=== PATIENT | male | born 1990 | race American Indian/Alaskan Native ===

== ENCOUNTER 2016-12-07 16:13 | Emergency (ER) | payer SELFPAY ==
[2016-12-07 17:04] LABS: Basophils % (Auto) 0.5 % (0.0-1.8); Eosinophils % (Auto) 1.8 % (0.0-4.3); Mean Corpuscular HGB Conc 31 % (32-34); Mean Corpuscular Volume 83 fl (84-94); Platelet Count 222 K/mm3 (140-440); Red Blood Count 5.62 M/mm3 (3.65-5.03); Red Cell Distribution Width 15.4 % (13.2-15.2); White Blood Count 7.1 K/mm3 (4.5-11.0)
[2016-12-07 17:05] LABS: Hematocrit 46.8 % (35.5-45.6); Hemoglobin 14.6 gm/dl (11.8-15.2); Mean Corpuscular Hemoglobin 26 pg (28-32)
[2016-12-07 17:07] LABS: Anion Gap 18 mmol/L; Blood Urea Nitrogen 11 mg/dL (9-20); Calcium 9.4 mg/dL (8.4-10.2); Carbon Dioxide 26 mmol/L (22-30); Chloride 103.3 mmol/L (98-107); Glucose 84 mg/dL (75-100); Potassium 3.9 mmol/L (3.6-5.0); Sodium 143 mmol/L (137-145)
[2016-12-07] MEDS ORDERED: LIDOCAINE VISCOUS 2% PO ONE (21:05)
[2016-12-07] MEDS ORDERED: ALUM-MAG HYDROX-SIMETH 200-200-20MG/5ML PO ONE (21:05)
--- NOTE | 2016-12-07 21:07 | Emergency Department Report ---
HPI - General Chief Complaint: Chest Pain Time Seen by Provider: 12/07/16 20:43 - HPI HPI: This is a 26-year-old -[place] male who presents the emergency department from home with complaint of a one-month history of midsternal left- sided intermittent chest pressure. He denies any shortness of breath, nausea, vomiting, back pain, diaphoresis or fever. He thought it might be gas so he tried some Zantac one time without relief. The patient is a former smoker having quit a few days ago. He denies any drugs or excessive alcohol use. He denies any family history of early cardiac disease or events. No recent travel or sick contacts at home. He does not have a primary care doctor. He denies any known aggravating or alleviating factors. ED Past Medical Hx - Past Medical History Previous Medical History?: No - Surgical History Past Surgical History?: No - Social History Smoking Status: Never Smoker Substance Use Type: Alcohol - Medications Home Medications: Home Medications Medication Instructions Recorded Confirmed Last Taken Type Guaifenesin/Pseudoephedrne HCl 1 tab PO BID #14 tab 03/15/15 Unknown Rx [Mucinex D ER 1,200-120 mg Tab] Phenol/Glycerin [Chloraseptic Max 30 ml MM QID PRN #1 bottle 03/15/15 Unknown Rx [place]] ED Review of Systems ROS: Stated complaint: CHEST PAIN Other details as noted in HPI Comment: All other systems reviewed and negative Constitutional: denies: chills, fever Eyes: denies: eye pain, eye discharge, vision change ENT: denies: ear pain, throat pain Respiratory: denies: cough, shortness of breath, wheezing Cardiovascular: chest pain. denies: palpitations Gastrointestinal: denies: abdominal pain, nausea, diarrhea Genitourinary: denies: urgency, dysuria Musculoskeletal: denies: back pain, joint swelling, arthralgia Skin: denies: rash, lesions Neurological: denies: headache, weakness, paresthesias Physical Exam - Physical Exam Vital Signs: Vital Signs 12/07/16 16:27 Temperature 98.6 F Pulse Rate 65 Respiratory 16 Rate Blood Pressure 130/87 O2 Sat by Pulse 99 Oximetry Physical Exam: GENERAL: The patient is well-developed well-nourished. HEENT: Normocephalic. Atraumatic. Extraocular motions are intact. Patient has moist mucous membranes. Pupils equal reactive to light bilaterally. NECK: Supple. Trachea is midline. CHEST/LUNGS: Clear to auscultation. There is no respiratory distress noted. HEART/CARDIOVASCULAR: Regular. There is no tachycardia. There is no gallop rub or murmur. ABDOMEN: Abdomen is soft, nontender. Patient has normal bowel sounds. There is no abdominal distention. SKIN: Skin is warm and dry. NEURO: The patient is awake, alert, and oriented. The patient is cooperative. The patient has no focal neurologic deficits. The patient has normal speech. MUSCULOSKELETAL: There is no tenderness or deformity. There is no limitation range of motion. There is no evidence of acute injury. ED Course Vital Signs 12/07/16 16:27 Temperature 98.6 F Pulse Rate 65 Respiratory 16 Rate Blood Pressure 130/87 O2 Sat by Pulse 99 Oximetry ED Medical Decision Making - Lab Data Result diagrams: 12/07/16 16:30 12/07/16 16:30 - EKG Data -: EKG Interpreted by Me EKG shows normal: sinus rhythm (with sinus arrhythmia), axis, intervals, QRS complexes, ST-T waves Rate: bradycardia (56 bpm) - EKG Data When compared to previous EKG there are: previous EKG unavailable Interpretation: normal EKG (with mild bradycardia and sinus arrhythmia) - Radiology Data Radiology results: image reviewed interpreted by me: Chest x-ray did not show any acute process. Heart is normal shape and size. No effusions. No pneumothorax. No signs of pneumonia seen. - Medical Decision Making 26-year-old male presents with a one-month history of some left-sided intermittent chest discomfort. Patient has normal sounding heart and lungs to auscultation. EKG is normal without ST elevation [place], dysrhythmia or ischemia. Labs are unremarkable including negative troponins 3. Patient is low on the well's score criteria and negative on the pulmonary embolism rule out criteria and also does not have any complaint of any shortness of breath. Vital signs stable including being afebrile. He felt that it could be gas related or GERD so a GI cocktail was given. Prior to presentation, upon reevaluation, the patient says he is pain-free but does not necessarily equate it with the GI cocktail. However the patient is a KAYLEE score of 0 and low on the heart score. He appears safe for discharge home at this time. He was given a referral for primary care and cardiology. He will return to the ER with any worsening of his symptoms or any acute distress. - Differential Diagnosis [place], costochondritis, GERD, pneumonia Critical Care Time: No Critical care attestation.: If time is entered above; I have spent that time in minutes in the direct care of this critically ill patient, excluding procedure time. ED Disposition Clinical Impression: Chest pain Qualifiers: Chest pain type: unspecified Qualified Code(s): R07.9 - Chest pain, unspecified Disposition: DISCHARGED TO HOME OR SELFCARE Is pt being admited?: No Condition: Stable Instructions: Chest Pain (ED) Additional Instructions: Please follow-up with a primary care doctor in the next few days. You have been given a referral for a local type mapper, Dr. Hutchinson, in case she would like to follow up regarding her chest discomfort. Return to the emergency department with any worsening of her symptoms, respiratory distress, or any acute distress. Referrals: BRANDON BARRIOS MD [Primary Care Provider] - 3-5 Days ERIN DAVILA MD [Staff Physician] - 3-5 Days BARI HUTCHINSON MD [Staff Physician] - 3-5 Days [facility] [Outside] - 3-5 Days Forms: Work/School Release Form(ED) Time of Disposition: 23:01
[2016-12-08 00:13] VITALS: BP 124/71
--- NOTE | 2016-12-08 10:53 | XRay Report ---
AP CHEST : 12/07/16 16:13:00 CLINICAL: Chest pain. COMPARISON:01/31/16 FINDINGS: Normal heart and pulmonary vessels. The lungs are normally expanded and clear. The bones and soft tissues are unremarkable. IMPRESSION: Normal chest.
== END 2016-12-07 23:30 | disposition home or self-care (01) ==
LOC: ED 16:13
DX: R07.9 Chest pain, unspecified (principal)
CPT/HCPCS: 36415; 71010; 80048; 84484; 85025; 93005; 93010; 99285